=== PATIENT | male | born 1970 | race African-American/Black ===

== ENCOUNTER 2016-09-13 00:54 | Emergency (ER) | payer MEDICAID ==
[~2016-09-13] VITALS: Ht 195.6 cm; Wt 111.1 kg
[~2016-09-13 00:54] MED LIST: ABILIFY15 MG ORAL; ABILIFY2 MG ORAL; ALPRAZOLAM1 MG ORAL; ALPRAZOLAM1 MG PO; CYCLOBENZAPRINE10 MG ORAL; DICLOFENAC SODI50 MG ORAL; KEPPRA500 MG ORAL; KEPPRA500 MG PO; KEPPRA750 MG ORAL; PERPHENAZINE2 MG PO; PROZAC20 MG PO; PROZAC40 MG ORAL; XANAX2 MG ORAL
[2016-09-13 01:10] VITALS: BP 128/81
[2016-09-13 01:15] VITALS: BP 128/81
--- NOTE | 2016-09-13 01:24 | Emergency Room Report ---
History of Present Illness General Chief Complaint: Behavioral Complaint Source: Patient Present Illness HPI This is a 46-year-old male well-known to this ER. He's been here multiple times in the past. He presents with chief complaint of hearing voices. He has a history paranoid schizophrenia take Abilify and Xanax for it. He said he lives in [place] but is here because he was at a bar. He said he. Her voice is more. Especially in his left ear. He claimed that he is compliant with his medication but does not care with him. Denies suicidal thought homicidal thought. Was is worse because his been drinking. Denies any other complaint. He's been here multiple times in the past for the same thing. Usually sleep overnight and in the morning said he is better and leave. When I ask him how he is going home, he said he he will take the bus in the morning. Allergies: Coded Allergies: BENZTROPINE (Verified Allergy, Unknown, 09/06/12) HALOPERIDOL (Verified Allergy, Unknown, 09/06/12) PENICILLINS (Verified Allergy, Unknown, 05/19/16) Patient History Past Medical History: see triage record, old chart reviewed, psych hx Past Surgical History: other Family History: none Social History: ETOH Immunizations: other Reviewed Nursing Documentation: PMH: Agreed, PSxH: Agreed Nursing Documentation-PMH Hx Asthma: Yes Hx Seizures: Yes Review of Systems ENT: Denies: sore throat Cardiovascular: Denies: chest pain, palpitations Gastrointestinal/Abdominal: Denies: diarrhea, nausea, vomiting Musculoskeletal: Denies: back problems Skin: Denies: rash Neurological: Denies: CHILDS, seizures All Other Systems: negative except mentioned in HPI Physical Exam Vital Signs Date Time Temp Pulse Resp B/P Pulse Ox O2 Delivery O2 Flow Rate FiO2 09/13/16 00:58 98.1 105 16 128/81 96 Room Air vitals normal. Sp02 EP Interpretation: reviewed, normal General Appearance: alert/responsive, no apparent distress, non-toxic Head: normocephalic, atraumatic Eyes: PERRL, EOMI ENT: oropharynx normal Neck: supple/symm/no masses Respiratory: effort normal, no rhonchi, no wheezing Cardiovascular: no murmur, gallop, rub Gastrointestinal: non-tender, no mass, non-distended, no rebound/guarding, normal bowel sounds Musculoskeletal: gait & station normal Neurologic: oriented x3, sensory intact, motor strength/tone normal Skin: no rash, normal palpation Medical Decision Making Diagnostic Impression: Primary Impression: Paranoid schizophrenia ER Course Patient presents with paranoid schizophrenia. I suspect there is a strong malingering component to this. I suspect he does want a place to stay for the night. When I told the patient that we'll check his previous visit to see was been done in the past, he got mad and got up and left. Last Vital Signs Date Time Temp Pulse Resp B/P Pulse Ox O2 Delivery O2 Flow Rate FiO2 09/13/16 00:58 98.1 105 16 128/81 96 Room Air Status: improved Disposition: HOME, SELF-CARE Condition: Stable ABRAM ZAFAR M.D. Sep 13, 2016 01:24
== END 2016-09-13 01:25 | disposition home or self-care (01) ==
LOC: EMR 01:18
DX: F20.0 Paranoid schizophrenia (principal); J45.909 Unspecified asthma, uncomplicated; Z88.8 Allergy status to other drugs, medicaments and biological substances; Z88.0 Allergy status to penicillin
CPT/HCPCS: 99282

== ENCOUNTER 2018-02-09 18:41 | Emergency (ER) | payer MEDICAID ==
[~2018-02-09] VITALS: Ht 195.6 cm; Wt 129.3 kg
--- NOTE | 2018-02-09 19:19 | Emergency Room Report ---
History of Present Illness General Chief Complaint: Behavioral Complaint Source: Patient (Alton Lantigua MD) Present Illness HPI Patient is a 47-year-old male who presented after increased reported auditory hallucinations. Patient states he had prior history of schizophrenia and but had recent history of heavy alcohol use. Patient stated he was drinking heavily at a bar earlier in the day and subsequently began having increased auditory hallucinations. When asked him which she was drinking patient stated "a lot"Patient states that he had been to this hospital multiple times in the past. (Alton Lantigua MD) Allergies: Coded Allergies: BENZTROPINE (Verified Allergy, Unknown, 09/06/12) HALOPERIDOL (Verified Allergy, Unknown, 09/06/12) PENICILLINS (Verified Allergy, Unknown, 05/19/16) Patient History Past Medical History: see triage record Reviewed Nursing Documentation: PMH: Agreed; PSxH: Agreed (Alton Lantigua MD) Nursing Documentation-PMH Hx Asthma: Yes Hx Seizures: Yes (Alton Lantigua MD) Review of Systems All Other Systems: negative except mentioned in HPI (Alton Lantigua MD) Physical Exam Vital Signs Date Time Temp Pulse Resp B/P (MAP) Pulse Ox O2 Delivery O2 Flow Rate FiO2 02/09/18 18:57 98.5 91 20 119/80 92 Room Air 98.4 Sp02 EP Interpretation: reviewed, normal General Appearance: normal inspection, well appearing, no apparent distress, alert, GCS 15 Head: atraumatic ENT: normal ENT inspection, hearing grossly normal, normal voice Neck: normal inspection, full range of motion, supple, no bony tend Respiratory: normal inspection, lungs clear, normal breath sounds, no respiratory distress, no retraction, no wheezing Cardiovascular #1: regular rate, rhythm, no edema Gastrointestinal: normal inspection, normal bowel sounds, non tender, soft, no guarding, no hernia Genitourinary: no CVA tenderness Musculoskeletal: normal inspection, back normal, normal range of motion Neurologic: normal inspection, alert, oriented x3, responsive, speech normal, other - slurred speech, Psychiatric: normal inspection, judgement/insight normal, mood/affect normal Skin: normal inspection, normal color, no rash (Alton Lantigua MD) Medical Decision Making Diagnostic Impression: Primary Impression: alcohol abuse ER Course Patient presented for reported auditory hallucinations. Differential diagnoses include alcohol intoxication, substance abuse, psychosis, bipolar disorder, depression, malingering. Because of complexity of patient's case laboratory testing and imaging studies were ordered. The patient appears to be intoxicated with alcohol. The patient does not appear to be any danger to self or other people. (Alton Lantigua MD) ER Course patient signout to me. Patient presents with hearing voices and vague suicidal thoughts. He has been here several times for same complaint. Usually sleep overnight and felt better in the morning and wanted to go home. At one point patient was combative and yelling. He was threatening staff. Police were called and patient calmed down. Police indicate that there is no "crime" committed. Patient is willing to go voluntarily to a psych facility. Psych disposition is pending. Patient is stable and is medically cleared. Lab Results Impression labs unremarkable (ABRAM ZAFAR M.D.) Last Vital Signs Date Time Temp Pulse Resp B/P (MAP) Pulse Ox O2 Delivery O2 Flow Rate FiO2 02/09/18 18:57 98.5 91 20 119/80 92 Room Air 98.4 Status: improved (Alton Lantigua MD) Status: improved (ABRAM ZAFAR M.D.) Disposition: HOME, SELF-CARE Condition: Stable Scripts Aripiprazole* (ABILIFY*) 5 Mg Tablet 5 MG ORAL DAILY, #20 TAB 0 Refills Prov: Alton Lantigua MD 02/10/18 Alton Lantigua MD Feb 09, 2018 19:19 ABRAM ZAFAR M.D. Feb 09, 2018 23:41
[2018-02-09 19:56] LABS: BASOPHILS % (AUTO) 1.7 % (0.0-2.0); HEMATOCRIT 47.6 % (42.0-52.0); HEMOGLOBIN 16.2 G/DL (14.2-18.0); LYMPHOCYTES % (AUTO) 39.8 % (20.0-45.0); MEAN CORPUSCULAR VOLUME 94 FL (80-99); MONOCYTES % (AUTO) 7.3 % (1.0-10.0); NEUTROPHILS % (AUTO) 47.3 % (45.0-75.0); PLATELET COUNT 167 K/UL (150-450); RED BLOOD COUNT 5.09 M/UL (4.70-6.10); RED CELL DISTRIBUTION WIDTH 11.8 % (11.6-14.8); WHITE BLOOD COUNT 8.8 K/UL (4.8-10.8)
[2018-02-09 20:14] LABS: ASPARTATE AMINO TRANSFERASE 28 U/L (15-37); BILIRUBIN,TOTAL 0.3 MG/DL (0.2-1.0); BLOOD UREA NITROGEN 9 mg/dL (7-18); CALCIUM 9.8 MG/DL (8.5-10.1); CARBON DIOXIDE 23 MMOL/L (21-32); CREATININE 1.3 MG/DL (0.55-1.30)
[2018-02-09 20:15] LABS: ALANINE AMINOTRANSFERASE 29 U/L (12-78); ALBUMIN 4.2 G/DL (3.4-5.0); ALKALINE PHOSPHATASE 86 U/L (46-116)
[2018-02-09 20:23] LABS: CHLORIDE 102 MMOL/L (98-107); POTASSIUM 3.9 MMOL/L (3.5-5.1); SODIUM 139 MMOL/L (136-145)
[2018-02-09 20:30] VITALS: BP 121/81
[2018-02-10 05:51] VITALS: BP 128/79
[2018-02-10 10:00] VITALS: BP 93/58
[2018-02-10 14:00] VITALS: BP 93/65
[2018-02-10] MEDS ORDERED: ABILIFY5 MG ORAL (15:46)
[2018-02-10 15:50] VITALS: BP 93/65
== END 2018-02-10 15:52 | disposition home or self-care (01) ==
LOC: EMR 19:27
DX: F10.10 Alcohol abuse, uncomplicated (principal); R44.0 Auditory hallucinations; J45.909 Unspecified asthma, uncomplicated; Z86.69 Personal history of other diseases of the nervous system and sense organs
CPT/HCPCS: 36415; 80053; 80299; 80307; 80329; 85025; 99283

== ENCOUNTER 2019-02-08 23:47 | Emergency (ER) | payer MEDICAID ==
[~2019-02-08] VITALS: Ht 195.6 cm; Wt 129.3 kg
[~2019-02-08 23:47] MED LIST changes: +ABILIFY5 MG ORAL
[2019-02-09] VITALS: BP 112/71
--- NOTE | 2019-02-09 01:11 | Emergency Room Report ---
History of Present Illness General Chief Complaint: Behavioral Complaint Source: Patient Present Illness HPI 48-year-old male with a history of schizophrenia. He presents with chief complaint of hearing voices and feeling suicidal. He had one beer tonight. Did not take his Abilify. When this happened he said he hears voices. Similar symptoms in the past. He sees a counselor almost every day. [place] better now. Denies any other complaint. No nausea no vomiting. No fever chills. No particular plan. Denies any use. Allergies: Coded Allergies: BENZTROPINE (Verified Allergy, Unknown, 02/09/19) HALOPERIDOL (Verified Allergy, Unknown, 09/06/12) PENICILLINS (Verified Allergy, Unknown, 05/19/16) Patient History Past Medical History: see triage record, old chart reviewed, psych hx, schizophrenia Past Surgical History: none Family History: none Social History: other Immunizations: UTD Reviewed Nursing Documentation: PMH: Agreed; PSxH: Agreed Nursing Documentation-PMH Hx Asthma: Yes Hx Seizures: Yes Review of Systems ENT: Denies: sore throat Cardiovascular: Denies: chest pain, palpitations Gastrointestinal/Abdominal: Denies: nausea, vomiting, diarrhea Musculoskeletal: Denies: back problems Skin: Denies: rash Psychiatric: Reports: prior history, suicidal/homicidal ideations Neurological: Denies: CHILDS, seizures All Other Systems: negative except mentioned in HPI Physical Exam Vital Signs Date Time Temp Pulse Resp B/P (MAP) Pulse Ox O2 Delivery O2 Flow Rate FiO2 02/09/19 00:00 98.2 106 18 112/71 (85) 95 Room Air Vitals normal Sp02 EP Interpretation: reviewed, normal General Appearance: alert/responsive, no apparent distress, non-toxic Head: normocephalic, atraumatic Eyes: PERRL, EOMI ENT: oropharynx normal Neck: supple/symm/no masses Respiratory: effort normal, no rhonchi, no wheezing Cardiovascular: no murmur, gallop, rub Gastrointestinal: non-tender, no mass, non-distended, no rebound/guarding, normal bowel sounds Musculoskeletal: gait & station normal Neurologic: oriented x3, sensory intact, motor strength/tone normal Skin: no rash, normal palpation Medical Decision Making Diagnostic Impression: Primary Impression: acute psychosis ER Course With psychosis. He is calm and cooperative here. [place] better after his Abilify. No particular plan. I see no criteria for 5150. Will discharge home. Last Vital Signs Date Time Temp Pulse Resp B/P (MAP) Pulse Ox O2 Delivery O2 Flow Rate FiO2 02/09/19 00:00 98.2 106 18 112/71 (85) 95 Room Air Status: improved Disposition: HOME, SELF-CARE Condition: Stable Referrals: NOT CHOSEN IPA/,REFERRING (PCP) Additional Instructions: Follow-up with your counselor on Monday. Take your medication. Return if worse. Agusto Parham MD Feb 09, 2019 01:11
== END 2019-02-09 | disposition home or self-care (01) ==
LOC: EMR 02-09 00:31
DX: F23 Brief psychotic disorder (principal); F20.9 Schizophrenia, unspecified; Z88.0 Allergy status to penicillin; Z88.8 Allergy status to other drugs, medicaments and biological substances
CPT/HCPCS: 99282